=== PATIENT | male | born 1940 | race Caucasian/White ===

== ENCOUNTER → 2017-01-08 | Outpatient (CLI) | payer MEDICARE ==
[~2017-01-08] MED LIST: ASPIRIN81 M1 PO; BACTRIM DS TABL1 TA1 PO; FISH OIL 1,001000 M1 PO; LOSARTAN-HCTZ1 EAC1 PO; VITAMIN E400 UNI2 PO; [UNRECOGNIZED DRUG - OTHER] PO
--- NOTE | ~2017-01-08 | CR184 ---
[facility] A Service of [facility] RADIOLOGY TEXT RESULTS PATIENT: DENIZ MORA LOCATION: [facility] : 44 UNIT #: [id number] AGE: [address]: Wale Lee MD SEX: M ORDER DR: [id number] [facility] [address] [place], [place] [address] [id number] O MR#: [id number] Acc #: [id number] NAME: DENIZ MORA. : 1940 SEX: M STUDY DATE/TIME: 01/08/2017 14:02 UNIT: [facility] ROOM: STUDY DESCRIPTION: CR Lumbar Spine Min 4 Views Attending Physician: Wale Lee M.D. Ordering Physician: Wale Lee M.D. Primary Care Physician: Wale Lee M.D. MEDICAL IMAGING REPORT This report is preliminary unless electronic signature is present EXAM Lumbar spine series, dated 01/08/2017. COMPARISON None. HISTORY Low back pain for 3 weeks. FINDINGS Vertebral body heights and alignment are preserved. Anterior endplate osteophytes are noted at multiple levels, more prominent in the thoracolumbar junction. There is decrease in disc height at T12-L1. Pedicles, spinous processes and transverse processes are within normal limits. No pars defects. Severe bilateral L5-S1 and to a lesser degree L4-5 facet hypertrophic changes are noted. Phleboliths are noted in the pelvis. IMPRESSION 1. Degenerative changes are noted at multiple levels of the lumbar spine without any significant disc height loss except at T12-L1 and to a lesser degree at L1-2. There are facet hypertrophic changes bilaterally at L5-S1, severe appearing. To a lesser degree it is noted in bilateral L4-5. MRI or CT can be considered for further evaluation of disc herniation, neural foraminal narrowing or canal stenosis. Dictated by... Joao Vale M.D. [facility] A Service of [facility] RADIOLOGY TEXT RESULTS PATIENT: DENIZ MOR[id number] 44 UNIT #: [id number] AGE: [address]: Wale Lee MD SEX: M ORDER DR: THIS IS AN ELECTRONICALLY VERIFIED REPORT Joao Vale M.D. at 01/12/2017 9:57 PM CPR/jt TD: 01/09/2017 01:33 JOB #: [id number] MEDICAL IMAGING REPORT Page 1 of 1 COPY
== END | disposition home or self-care (01) ==
LOC: CRAD 13:38
DX: M54.5 Low back pain (principal); M47.896 Other spondylosis, lumbar region; M51.86 Other intervertebral disc disorders, lumbar region
CPT/HCPCS: 72110

== ENCOUNTER → 2017-01-12 | Outpatient (CLI) | payer MEDICARE ==
--- NOTE | ~2017-01-12 | US115 ---
[facility] A Service of [facility] RADIOLOGY TEXT RESULTS PATIENT: DENIZ MORA LOCATION: [facility] : 42 UNIT #: [id number] AGE: [address]: Wale Lee MD SEX: M ORDER DR: [id number] [facility] [address] [place] [address]. [place], [place] [address] [id number] O MR#: [id number] Acc #: [id number] NAME: DENIZ MORA : 1940 SEX: M STUDY DATE/TIME: 01/12/2017 15:32 UNIT: [facility] ROOM: STUDY DESCRIPTION: US Scrotum and Contents Attending Physician: Wale Lee M.D. Referring Physician: Wale Lee M.D. Ordering Physician: Wale Lee M.D. Primary Care Physician: Wale Lee M.D. MEDICAL IMAGING REPORT This report is preliminary unless electronic signature is present EXAM Scrotal ultrasound with Doppler imaging DATE: 01/12/2017 HISTORY Enlarged prostate. Left side scrotal pain for 3-4 weeks. Diabetes. Hypertension. COMPARISON None. FINDINGS The right testicle measures 3.2 cm x 0.9 cm x 1.9 cm. Left testicle measures 3.2 cm x 1.4 cm x 2.2 cm. The testicles appear mildly atrophic and demonstrate a coarsened echotexture, but no suspicious solid testicular masses are identified. Benign appearing intratesticular cysts or focal cystic dilation to rete testis is demonstrated within the left testicle measuring about 3-4 mm. Normal color and spectral Doppler flow was documented within each testicle. No focal epididymal lesions are identified. Coarsened bilateral epididymal echotexture thought to represent a chronic finding. No abnormal hyperemic changes are demonstrated within either testicle nor within the epididymi. Bilateral scrotal varicoceles are demonstrated with slow flow. IMPRESSION 1. No acute scrotal findings. 2. Bilateral scrotal varicoceles. 3. No hydrocele. 4. 3-4 mm left testicular cyst or cystic dilation of rete testis. No suspicious testicular mass lesion is seen. [facility] A Service of [facility] RADIOLOGY TEXT RESULTS PATIENT: DENIZ MORA LOCATION: [facility] : 44 UNIT #: [id number] AGE: [address]: Wale Lee MD SEX: M ORDER DR: 5. Normal flow was documented to each testicle. Dictated by... Madeleine Martini M.D. THIS IS AN ELECTRONICALLY VERIFIED REPORT Madeleine Martini M.D. at 01/13/2017 8:55 AM LEXIE/dwayne TD: 01/13/2017 02:17 JOB #: [id number] MEDICAL IMAGING REPORT Page 1 of 1 COPY
== END | disposition home or self-care (01) ==
LOC: CGUS 14:46
DX: N40.0 Benign prostatic hyperplasia without lower urinary tract symptoms (principal); N50.82 Scrotal pain; I86.1 Scrotal varices
CPT/HCPCS: 76870; 93976